=== PATIENT | male | born 1965 | race Caucasian/White ===

== ENCOUNTER 2017-08-17 10:45 | Emergency (ER) | payer BC ==
[2017-08-17] MEDS ORDERED: methylPREDNISolone SOD SUCCI 125 MG/2 ML VIAL IV STA (11:03)
[2017-08-17] MEDS ORDERED: diphenhydrAMINE 50 MG/ML 1 ML VIAL IVP STA (11:03)
[2017-08-17] MEDS ORDERED: FAMOTIDINE 20 MG/2 ML VIAL IV STA (11:03)
[2017-08-17] MEDS ORDERED: IPRATROPIUM-ALBUTEROL 3 ML NEB INHALATION STA (11:03)
[2017-08-17 11:04] VITALS: TEMP 98
--- NOTE | 2017-08-17 11:07 | ED ---
General Adult HPI - General Chief complaint: Shortness of Breath Stated complaint: ASTHMA, SOB Time Seen by Provider: 08/17/17 10:57 Source: patient, RN notes reviewed Mode of arrival: wheelchair Limitations: no limitations - History of Present Illness Initial comments: Patient is a pleasant 52-year-old male presenting to the emergency department with difficulty in breathing. Patient was exposed to perfume earlier today. Patient became short of breath. Patient took a breathing treatment as well as inhaled steroid and 25 mg of Benadryl. Symptoms improved however have started to worsen. Patient does have a history of similar problems previously associated with asthma and ALLERGIES. No fever. - Related Data Home Medications Medication Instructions Recorded Confirmed Albuterol Nebulized [Ventolin 2.5 mg INHALATION RT-QID PRN 08/17/17 08/17/17 Nebulized] Allopurinol [Zyloprim] 300 mg PO DAILY PRN 08/17/17 08/17/17 Ascorbic Acid [Vitamin C] 500 mg PO DAILY 08/17/17 08/17/17 Febuxostat [Uloric] 80 mg PO DAILY 08/17/17 08/17/17 Losartan [Cozaar] 50 mg PO DAILY 08/17/17 08/17/17 Multivitamins, Thera [Multivitamin 1 tab PO DAILY 08/17/17 08/17/17 (formulary)] Omeprazole 20 mg PO DAILY 08/17/17 08/17/17 Simvastatin [Zocor] 20 mg PO HS 08/17/17 08/17/17 Temazepam [Restoril] 15 mg PO HS PRN 08/17/17 08/17/17 Ursodiol 300 mg PO BID 08/17/17 08/17/17 diphenhydrAMINE ELIXIR [Benadryl 25 mg PO ONCE PRN 08/17/17 08/17/17 Elixir] metFORMIN HCL [Glucophage] 1,000 mg PO BID 08/17/17 08/17/17 Previous Rx's Medication Instructions Recorded methylPREDNISolone Dose Pack 24 mg PO DAILY #1 tab 08/17/17 [Medrol Dose Pack] Allergies Allergy/AdvReac Type Severity Reaction Status Date / Time calvo Allergy Severe Dyspnea Verified 08/17/17 10:59 lavender (Lavandula Allergy Severe Dyspnea Verified 08/17/17 10:59 angustifolia) mold Allergy Severe Dyspnea Verified 08/17/17 10:59 perfume Allergy Severe Dyspnea Verified 08/17/17 10:59 ENVIRONMENTAL Allergy Severe Dyspnea Uncoded 08/17/17 10:59 Review of Systems ROS Statement: Those systems with pertinent positive or pertinent negative responses have been documented in the HPI. ROS Other: All systems not noted in ROS Statement are negative. Constitutional: Denies: fever Eyes: Denies: eye pain ENT: Denies: ear pain Respiratory: Reports: dyspnea. Denies: cough Cardiovascular: Denies: chest pain Endocrine: Denies: fatigue Gastrointestinal: Denies: abdominal pain Genitourinary: Denies: dysuria Musculoskeletal: Denies: back pain Skin: Denies: rash Neurological: Denies: weakness Past Medical History Past Medical History: Asthma, Hyperlipidemia History of Any Multi-Drug Resistant Organisms: None Reported Past Surgical History: Hernia Repair, Tonsillectomy Additional Past Surgical History / Comment(s): gastric sleeve, carpal tunnel surgery bilaterally, Rouxen-Y procedure Past Psychological History: No Psychological Hx Reported Smoking Status: Never smoker Past Alcohol Use History: None Reported Past Drug Use History: None Reported General Exam Limitations: no limitations General appearance: alert Head exam: Present: atraumatic Eye exam: Present: normal appearance, PERRL ENT exam: Present: normal oropharynx Neck exam: Present: normal inspection Respiratory exam: Present: respiratory distress, wheezes Cardiovascular Exam: Present: regular rate, normal rhythm Extremities exam: Present: normal inspection. Absent: pedal edema, calf tenderness Neurological exam: Present: alert Psychiatric exam: Present: normal affect, normal mood Skin exam: Present: normal color Course Vital Signs 08/17/17 08/17/17 08/17/17 10:57 11:05 11:23 Temperature 98 F Pulse Rate 77 65 69 Respiratory 26 H 20 Rate Blood Pressure 125/78 118/65 O2 Sat by Pulse 99 100 Oximetry Medical Decision Making - Medical Decision Making Patient reevaluated and significantly improved. No respiratory distress. Patient requests discharge home. Disposition Clinical Impression: Asthma, Allergic reaction Disposition: HOME SELF-CARE Condition: Stable Instructions: Asthma (ED), Allergies (ED) Additional Instructions: Please follow-up with primary care physician in the next couple days for recheck. Return for difficulty in breathing, fevers, swelling of the throat, tongue, or lips, worsening symptoms or other concerns. Continue antihistamines. Prescriptions: methylPREDNISolone Dose Pack [Medrol Dose Pack] 24 mg PO DAILY #1 tab Referrals: Zay Garcia MD [Primary Care Provider] - 1-2 days Time of Disposition: 12:15
[2017-08-17 12:26] VITALS: BP 119/70; PULSE 65; RESP 16
== END 2017-08-17 12:25 | disposition home or self-care (01) ==
LOC: EC 10:45
DX: T78.49XA Other allergy, initial encounter (principal); J45.909 Unspecified asthma, uncomplicated; E78.5 Hyperlipidemia, unspecified; Z79.51 Long term (current) use of inhaled steroids; Z79.84 Long term (current) use of oral hypoglycemic drugs; Z79.899 Other long term (current) drug therapy; Z91.048 Other nonmedicinal substance allergy status
CPT/HCPCS: 94640; 99284; 96374; 96375 ×2; J1200; J2930

== ENCOUNTER → 2017-09-14 | Outpatient (CLI) | payer BC ==
--- NOTE | 2017-09-15 08:02 | XR ---
EXAMINATION TYPE: XR ankle limited LT DATE OF EXAM: 09/14/2017 COMPARISON: NONE HISTORY: FINDINGS: Two views of the ankle demonstrate the ankle mortise to be intact and symmetric. The joint spaces ar e preserved. The osseous structures are intact. Ossific density inferior to the medial malleolus ma y be related to remote trauma. Calcaneal spurs are noted. There is soft tissue edema. IMPRESSION: 1. Bony density inferior to the medial malleolus may be chronic correlate with point tenderness to ex clude acute injury. 2. Diffuse soft tissue edema..
--- NOTE | 2017-09-15 10:59 | US ---
EXAMINATION TYPE: US venous doppler duplex LE LT DATE OF EXAM: 09/14/2017 4:50 PM COMPARISON: NONE CLINICAL HISTORY: M79.89 Swelling left lower extremity. Left ankle swelling. No hx of blood clots or on blood thinners. No surgeries. SIDE PERFORMED: Left TECHNIQUE: The lower extremity deep venous system is examined utilizing real time linear array sonog bill with graded compression, doppler sonography and color-flow sonography. VESSELS IMAGED: External Iliac Vein (EIV) Common Femoral Vein Deep Femoral Vein Greater Saphenous Vein * Femoral Vein Popliteal Vein Small Saphenous Vein * Proximal Calf Veins (* superficial vessels) Left Leg: Negative for DVT IMPRESSION: Grayscale, color doppler, spectral doppler imaging performed of the deep veins of the lo wer extremities. There is normal flow, compressibility, vascular waveforms. No evident deep venous thrombosis at or above the left knee
== END | disposition home or self-care (01) ==
LOC: RADUSWWP 16:16
PROVIDERS: ATTEND Family Medicine
DX: M79.89 Other specified soft tissue disorders (principal)

== ENCOUNTER 2017-11-08 11:52 | Emergency (ER) | payer BC ==
[2017-11-08] MEDS ORDERED: methylPREDNISolone SOD SUCCI 125 MG/2 ML VIAL IV STA (11:56)
[2017-11-08] MEDS ORDERED: SODIUM CHLORIDE 0.9% 1,000 ML IV STA ×2 (11:56)
[2017-11-08] MEDS ORDERED: IPRATROPIUM-ALBUTEROL 3 ML NEB INHALATION STA (11:56)
[2017-11-08] MEDS ORDERED: EPINEPHrine 1 MG/ML 1 ML AMP SQ ONE (12:08)
[2017-11-08] MEDS ORDERED: diphenhydrAMINE 50 MG/ML 1 ML VIAL IVP STA (12:08)
[2017-11-08] MEDS ORDERED: FAMOTIDINE 20 MG/2 ML VIAL IV STA (12:08)
--- NOTE | 2017-11-08 12:09 | ED ---
General Adult HPI - General Chief complaint: Shortness of Breath Stated complaint: ASTHMA Time Seen by Provider: 11/08/17 11:56 Source: patient, RN notes reviewed, old records reviewed Mode of arrival: ambulatory Limitations: no limitations - History of Present Illness Initial comments: This is a 52-year-old male to the ER for evaluation. He goes in today for evaluation regarding ALLERGIC the reactive airway disease secondary perfume exposure. Patient has history of asthma history of issue with similar complaint. Patient states he has severe shortness of breath feeling slightly sore swelling. Patient states that he cannot be needed due to breathing treatment with Benadryl prior to arrival - Related Data Home Medications Medication Instructions Recorded Confirmed Albuterol Nebulized [Ventolin 2.5 mg INHALATION RT-QID PRN 08/17/17 11/08/17 Nebulized] Febuxostat [Uloric] 80 mg PO DAILY 08/17/17 11/08/17 Losartan [Cozaar] 50 mg PO DAILY 08/17/17 11/08/17 Multivitamins, Thera [Multivitamin 1 tab PO DAILY 08/17/17 11/08/17 (formulary)] Omeprazole 20 mg PO DAILY 08/17/17 11/08/17 Simvastatin [Zocor] 20 mg PO HS 08/17/17 11/08/17 Temazepam [Restoril] 15 mg PO HS PRN 08/17/17 11/08/17 Ursodiol 300 mg PO BID 08/17/17 11/08/17 diphenhydrAMINE ELIXIR [Benadryl 25 mg PO Q4H PRN 08/17/17 11/08/17 Elixir] metFORMIN HCL [Glucophage] 1,000 mg PO BID 08/17/17 11/08/17 Allen/D3/Mag11/Zinc/Brass Instrument Repair Technician/Gerry/Bor 1 tab PO DAILY 11/08/17 11/08/17 [Caltrate 600+D Plus Tablet] Allergies Allergy/AdvReac Type Severity Reaction Status Date / Time calvo Allergy Severe Dyspnea Verified 11/08/17 12:45 lavender (Lavandula Allergy Severe Dyspnea Verified 11/08/17 12:45 angustifolia) mold Allergy Severe Dyspnea Verified 11/08/17 12:45 perfume Allergy Severe Dyspnea Verified 11/08/17 12:45 ENVIRONMENTAL Allergy Severe Dyspnea Uncoded 02/22/18 10:59 Review of Systems ROS Statement: Those systems with pertinent positive or pertinent negative responses have been documented in the HPI. ROS Other: All systems not noted in ROS Statement are negative. Past Medical History Past Medical History: Asthma, Hyperlipidemia History of Any Multi-Drug Resistant Organisms: None Reported Past Surgical History: Hernia Repair, Tonsillectomy Additional Past Surgical History / Comment(s): gastric sleeve, carpal tunnel surgery bilaterally, Rouxen-Y procedure Past Psychological History: No Psychological Hx Reported Smoking Status: Never smoker Past Alcohol Use History: None Reported Past Drug Use History: None Reported General Exam Limitations: no limitations General appearance: alert, in no apparent distress, anxious Head exam: Present: atraumatic, normocephalic, normal inspection Eye exam: Present: normal appearance, PERRL, EOMI. Absent: scleral icterus, conjunctival injection, periorbital swelling ENT exam: Present: normal exam, mucous membranes moist Neck exam: Present: normal inspection. Absent: tenderness, meningismus, lymphadenopathy Respiratory exam: Present: respiratory distress, wheezes, accessory muscle use, decreased breath sounds, prolonged expiratory. Absent: normal lung sounds bilaterally, rales, rhonchi, stridor Cardiovascular Exam: Present: regular rate, normal rhythm, normal heart sounds. Absent: systolic murmur, diastolic murmur, rubs, gallop, clicks GI/Abdominal exam: Present: soft, normal bowel sounds. Absent: distended, tenderness, guarding, rebound, rigid Extremities exam: Present: normal inspection, full ROM, normal capillary refill. Absent: tenderness, pedal edema, joint swelling, calf tenderness Back exam: Present: normal inspection Neurological exam: Present: alert, oriented X3, CN II-XII intact Psychiatric exam: Present: normal affect, normal mood Skin exam: Present: warm, dry, intact, normal color. Absent: rash Course Vital Signs 11/08/17 11/08/17 11/08/17 11:59 12:02 12:03 Temperature 98.0 F Pulse Rate 97 83 Respiratory 18 30 H Rate Blood Pressure 122/68 O2 Sat by Pulse 98 Oximetry 11/08/17 11/08/17 12:20 12:38 Temperature Pulse Rate 86 90 Respiratory 24 22 Rate Blood Pressure 121/62 O2 Sat by Pulse 100 100 Oximetry - Reevaluation(s) Reevaluation #1: 11/08/17 13:27 Patient states that this when he has significant improvement in symptoms. No shortness of breath, no difficulty breathing no feelings of throat closing or stridor EKG Findings - EKG Comments: EKG Findings:: EKG shows normal sinus rhythm rate of 80, MN 134, QRS 90, QTc 479 Medical Decision Making - Medical Decision Making 62 male with ALLERGIC induced L asthma attack. At this point patient does feel normal, patient can be discharged home - Lab Data Result diagrams: 11/08/17 12:05 11/08/17 12:05 Lab Results 11/08/17 11/08/17 11/08/17 Range/Units 12:05 12:05 12:05 WBC 11.2 H (3.8-10.6) k/uL RBC 4.77 (4.30-5.90) m/uL Hgb 13.9 (13.0-17.5) gm/dL Hct 42.4 (39.0-53.0) % MCV 88.9 (80.0-100.0) fL MCH 29.2 (25.0-35.0) pg MCHC 32.9 (31.0-37.0) g/dL RDW 15.0 (11.5-15.5) % Plt Count 204 (150-450) k/uL Neutrophils % 65 % Lymphocytes % 27 % Monocytes % 5 % Eosinophils % 2 % Basophils % 1 % Neutrophils # 7.3 (1.3-7.7) k/uL Lymphocytes # 3.0 (1.0-4.8) k/uL Monocytes # 0.5 (0-1.0) k/uL Eosinophils # 0.2 (0-0.7) k/uL Basophils # 0.1 (0-0.2) k/uL Sodium 143 (137-145) mmol/L Potassium 4.0 (3.5-5.1) mmol/L Chloride 107 (98-107) mmol/L Carbon Dioxide 22 (22-30) mmol/L Anion Gap 14 mmol/L BUN 13 (9-20) mg/dL Creatinine 0.67 (0.66-1.25) mg/dL Est GFR (CKD-EPI)AfAm >90 (>60 ml/min/1.73 sqM) Est GFR (CKD-EPI)NonAf >90 (>60 ml/min/1.73 sqM) Glucose 133 H (74-99) mg/dL Calcium 9.8 (8.4-10.2) mg/dL Magnesium 1.6 (1.6-2.3) mg/dL Total Bilirubin 0.6 (0.2-1.3) mg/dL AST 18 (17-59) U/L ALT 29 (21-72) U/L Alkaline Phosphatase 100 (38-126) U/L Total Creatine Kinase 49 L (55-170) U/L CK-MB (CK-2) 0.8 (0.0-2.4) ng/mL CK-MB (CK-2) Rel Index 1.6 Troponin I <0.012 (0.000-0.034) ng/mL Total Protein 6.1 L (6.3-8.2) g/dL Albumin 3.9 (3.5-5.0) g/dL - Radiology Data Radiology results: report reviewed (Chest x-rays negative), image reviewed Disposition Clinical Impression: Asthma with exacerbation, Bronchospasm, acute Disposition: HOME SELF-CARE Condition: Good Instructions: Bronchospasm (ED), Allergies (ED), Asthma (ED) Is patient prescribed a controlled substance at d/c from ED?: No Referrals: Zay Garcia MD [Primary Care Provider] - 1-2 days
[2017-11-08 12:15] LABS: Basophils # (A) 0.1 k/uL (0-0.2); Basophils % (A) 1 %; Eosinophils # (A) 0.2 k/uL (0-0.7); Eosinophils % (A) 2 %; HCT 42.4 % (39.0-53.0); HGB 13.9 gm/dL (13.0-17.5); Lymphocytes % (A) 27 %; MCH 29.2 pg (25.0-35.0); MCHC 32.9 g/dL (31.0-37.0); MCV 88.9 fL (80.0-100.0); Mean Platelet Volume 7.8; Monocytes # (A) 0.5 k/uL (0-1.0); Monocytes % (A) 5 %; Neutrophils # (A) 7.3 k/uL (1.3-7.7); Neutrophils % (A) 65 %; Platelet Count 204 k/uL (150-450); RBC 4.77 m/uL (4.30-5.90); WBC 11.2 k/uL (3.8-10.6)
[2017-11-08 12:27] LABS: ALT 29 U/L (21-72); AST 18 U/L (17-59); Albumin 3.9 g/dL (3.5-5.0); Alkaline Phosphatase 100 U/L (38-126); Anion Gap 14 mmol/L; Blood Urea Nitrogen 13 mg/dL (9-20); Calcium 9.8 mg/dL (8.4-10.2); Carbon Dioxide 22 mmol/L (22-30); Chloride 107 mmol/L (98-107); Glucose 133 mg/dL (74-99); Magnesium 1.6 mg/dL (1.6-2.3); Sodium 143 mmol/L (137-145); Total Bilirubin 0.6 mg/dL (0.2-1.3); Total Protein 6.1 g/dL (6.3-8.2)
--- NOTE | 2017-11-08 12:38 | XR ---
EXAMINATION TYPE: XR chest 1V portable DATE OF EXAM: 11/08/2017 Comparison: None Clinical History: 52-year-old male sob Findings: Heart normal size. Aorta and pulmonary vasculature are within normal limits. Hazy peripheral lung den sities related to overlying soft tissue. No consolidation or pleural effusion. Impression: No acute cardiopulmonary process.
[2017-11-08 12:39] LABS: Creatine Kinase 49 U/L (55-170)
[2017-11-08 12:51] LABS: Creatine Kinase MB 0.8 ng/mL (0.0-2.4); Troponin I <0.012 ng/mL (0.000-0.034)
[2017-11-08 13:46] VITALS: BP 137/61; PULSE 85; RESP 18; TEMP 97.6
== END 2017-11-08 14:10 | disposition home or self-care (01) ==
LOC: EC 11:52
DX: J45.901 Unspecified asthma with (acute) exacerbation (principal); E78.5 Hyperlipidemia, unspecified; Z79.84 Long term (current) use of oral hypoglycemic drugs; Z79.899 Other long term (current) drug therapy; Z91.048 Other nonmedicinal substance allergy status
CPT/HCPCS: 36415; 94640; 93005; 80053; 82550; 82553; 83735; 84484; 85025; 71045; 99285; 96374; 96375 ×2; 96361; 96372; J0171; J1200; J2930

== ENCOUNTER → 2020-05-29 | Outpatient (CLI) | payer BC | END | disposition home or self-care (01) | LOC: LABWHC1 16:56 | PROVIDERS: ATTEND Ophthalmology | DX: U07.1 COVID-19 (principal) | CPT/HCPCS: U0003; C9803 ==

== ENCOUNTER → 2022-09-13 | Outpatient (CLI) | payer BC ==
[2022-09-13 10:48] LABS: Basophils # (A) 0.06 X 10*3/uL (0.00-0.10); Basophils % (A) 0.9 %; HCT 44.3 % (39.6-50.0); HGB 14.1 g/dL (13.0-17.0); Immature Grans, Automated 0.3 %; Lymphocytes # (A) 2.25 X 10*3/uL (0.90-5.00); Lymphocytes % (A) 33.4 %; MCH 28.4 pg (27.0-32.0); MCHC 31.8 g/dL (32.0-37.0); MCV 89.1 fL (80.0-97.0); Mean Platelet Volume 11.5 fL (9.5-12.2); Monocytes # (A) 0.61 X 10*3/uL (0.20-1.00); Monocytes % (A) 9.1 %; NRBC Per 100 WBC 0 /100 WBCS (0.0-0.0); Neutrophils # (A) 3.59 X 10*3/uL (1.80-7.70); Neutrophils % (A) 53.3 %; Platelet Count 213 X 10*3/uL (140-440); RBC 4.97 X 10*6/uL (4.40-5.60); RDW 13.8 % (11.5-14.5); WBC 6.73 X 10*3/uL (4.50-10.00)
[2022-09-13 11:41] LABS: African American GFR (CKD) 109.1 (60.0-200.0); Albumin 4.1 g/dL (3.8-4.9); Albumin/Globulin Ratio 1.9 (1.60-3.17); Anion Gap 8.8 mmol/L (10.00-18.00); BUN/Creat Ratio 14.54 Ratio (12.00-20.00); Blood Urea Nitrogen 13.2 mg/dL (9.0-27.0); Calcium 9.7 mg/dL (8.7-10.3); Carbon Dioxide 28.8 mmol/L (20.0-27.5); Globulin 2.2 g/dL (1.6-3.3); Non-African American GFR(CKD) 94.1 (60.0-200.0); Potassium 4.8 mmol/L (3.5-5.5); Total Bilirubin 0.4 mg/dL (0.30-1.20); Total Protein 6.2 g/dL (6.2-8.2)
== END | disposition home or self-care (01) ==
LOC: LABWHC1 07:36
PROVIDERS: ATTEND Surgery
DX: K81.1 Chronic cholecystitis (principal)
CPT/HCPCS: 36415; 80053; 85025

== ENCOUNTER → 2022-09-16 | Day surgery (SDC) | payer BC ==
[2022-09-14 10:47] VITALS: BMI 34.4
[~2022-09-16] MED LIST: ACETAMINOPHEN TAB 325 MG TAB PO SCH; ACETAMINOPHEN TAB 500 MG TAB PO PRN; BUPIVACAIN-EPI 0.25%-1:200,000 30 ML VIAL SQ ONE; DEXAMETHASONE SOD PHOSPHATE 4 MG/ML 1 ML VIAL IV ONE; GLYCOPYRROLATE 0.2 MG/ML 2 ML VIAL ONE; HEPARIN SODIUM,PORCINE/PF 5,000 UNIT/0.5 ML SYRINGE SQ PRN; HYDROmorphone (PF) 1 MG/ML ONE; HYDROmorphone 0.5 MG/0.5 ML SYRINGE IVP ONE; HYDROmorphone 0.5 MG/0.5 ML SYRINGE IVP PRN; IBUPROFEN 600 MG TAB PO SCH; LACTATED RINGERS 1,000 ML IV ONE; LACTATED RINGERS 1,000 ML IV SCH; LIDOCAINE 1% (10MG/ML) FOR IV START INTRADERMA PRN; LIDOCAINE 2% INJ 20 MG/ML (2 ML VIAL) ONE; LIDOCAINE 4% LTA KIT (4 ML) TOPICAL ONE; MIDAZOLAM 2 MG/2 ML VIAL IV PRN; MIDAZOLAM 2 MG/2 ML VIAL ONE; NEOSTIGMINE 1 MG/ML 10 ML VIAL ONE; ONDANSETRON 4 MG/2 ML VIAL IVP ONE; PHENYLEPHRINE-0.9% NACL SYG 1,000 MCG/10 ML SYRINGE ONE; PROPOFOL 10 MG/ML 20 ML VIAL IV ONE; SUCCINYLCHOLINE CHLORIDE 200 MG/10 ML VIAL IV ONE; fentaNYL (PF) 50 MCG/ML 2 ML AMP ONE
[2022-09-16 07:22] LABS: Glucose,Whole Blood 149 mg/dL (70-110)
--- NOTE | 2022-09-16 07:30 | P.GSHP ---
History of Present Illness H&P Date: 09/16/22 Chief Complaint: Chronic cholecystitis 57-year-old male seen in the office in June. Having intermittent complaints of right upper quadrant pain. Ultrasound performed showing gallstones with gallbladder wall thickening. Recent liver enzymes normal. Here today for elect tere laparoscopic cholecystectomy. Past Medical History Past Medical History: Asthma, Diabetes Mellitus, Hyperlipidemia Additional Past Medical History / Comment(s): Hyperlipidemia resolved 6 yrs ago. Hx Gout. History of Any Multi-Drug Resistant Organisms: None Reported Past Surgical History: Bariatric Surgery, Hernia Repair, Orthopedic Surgery, Tonsillectomy Additional Past Surgical History / Comment(s): Gastric sleeve, bilateral carpal tunnel surgery, Becky en Y Procedure. Past Anesthesia/Blood Transfusion Reactions: No Reported Reaction Past Psychological History: No Psychological Hx Reported Smoking Status: Never smoker Past Alcohol Use History: None Reported Past Drug Use History: None Reported - Past Family History Mother Family Medical History: No Reported History Medications and Allergies Home Medications Medication Instructions Recorded Confirmed Type Albuterol Nebulized [Ventolin 2.5 mg INHALATION RT-QID PRN 08/17/17 09/16/22 History Nebulized] Multivitamins, Thera [Multivitamin 1 tab PO DAILY 08/17/17 09/14/22 History (formulary)] diphenhydrAMINE ELIXIR [Benadryl 25 mg PO Q4H PRN 08/17/17 09/16/22 History Elixir] metFORMIN HCL [Glucophage] 1,000 mg PO BID 08/17/17 09/14/22 History Allen/D3/Mag11/Zinc/Cost Accountant/Gerry/Bor 1 tab PO DAILY 11/08/17 09/14/22 History [Caltrate 600+D Plus Tablet] Albuterol Inhaler (Unknown Dose) 1 - 2 puff INHALATION DIRECTED 09/14/22 09/16/22 History PRN Cetirizine HCl [Zyrtec] 10 mg PO HS 09/14/22 09/14/22 History Ergocalciferol [Vitamin D2 (1250 1,250 mcg PO MOWE 09/14/22 09/16/22 History Mcg = 18752 Iu)] Famotidine [Pepcid] 40 mg PO BID PRN 09/14/22 09/16/22 History Loratadine 10 mg PO QAM 09/14/22 09/16/22 History predniSONE 50 mg PO DAILY PRN 09/14/22 09/16/22 History Glimepiride [Amaryl] 2 mg PO AC-BRKFST 09/16/22 09/16/22 History Allergies Allergy/AdvReac Type Severity Reaction Status Date / Time calvo Allergy Severe Dyspnea Verified 09/16/22 06:56 lavender (Lavandula Allergy Severe Dyspnea Verified 09/16/22 06:56 angustifolia) mold Allergy Severe Dyspnea Verified 09/16/22 06:56 perfume Allergy Severe Dyspnea Verified 09/16/22 06:56 ENVIRONMENTAL Allergy Severe Dyspnea Uncoded 09/16/22 06:56 Surgical - Exam Physical exam: General: Well-developed, well-nourished HEENT: Normocephalic, sclerae nonicteric Abdomen: Nontender, nondistended Extremities: No edema Neuro: Alert and oriented Results - Labs Abnormal Lab Results - Last 24 Hours (Table) 09/16/22 Range/Units 07:17 POC Glucose (mg/dL) 149 H (70-110) mg/dL Assessment and Plan (1) Chronic cholecystitis Narrative/Plan: 57-year-old male with chronic cholecystitis. We'll proceed with laparoscopic, possible open cholecystectomy at this time. Risks of bleeding, infection, bile leak, bile duct injury, retained common bile duct stone, trocar injury, conversion to an open procedure, hernia, anesthesia related complications were reviewed. The patient understands and wishes to proceed. Current Visit: Yes Status: Acute Code(s): K81.1 - CHRONIC CHOLECYSTITIS SNOMED Code(s): 38881776
[2022-09-16 09:16] VITALS: TEMP 97.5
--- NOTE | 2022-09-16 09:21 | P.OP ---
Date of Procedure: 09/16/22 Procedure(s) Performed: PREOPERATIVE DIAGNOSIS: Chronic cholecystitis POSTOPERATIVE DIAGNOSIS: Same, intra-abdominal adhesions PROCEDURE: Laparoscopic cholecystectomy, lysis of adhesions SURGEON: Rodrick EBL: Minimal see anesthesia record ANESTHESIA: Gen. COMPLICATIONS: None OPERATIVE PROCEDURE: The patient was brought and placed on the operating room table in the supine position. The patient was placed under general anesthesia at that time. The abdomen was prepped and draped in the usual sterile fashion. A small horizontal supraumbilical incision was made. The fascia was grasped with the Rudy forceps. The fascia was retracted anteriorly. The Veress needle was advanced into the peritoneal cavity. The saline drop test was normal. Insufflation took place up to 15 mmHg. A 5 mm optical trocar was advanced and the peritoneal cavity. The patient had adhesions between the transverse colon omentum and the abdominal wall in the epigastric region. An additional 5 mm trocar was used in the left upper quadrant and through that a LigaSure was utilized to take down the adhesions. The patient's falciform was densely adherent to these adhesions and was divided using LigaSure. The left lobe of the patient's liver was quite large in this case. Visualization of the gallbladder was somewhat limited. Through the lateral left upper quadrant trocar site I was able to elevate the left lower liver using a blunt pusher. 2 additional 5 mm trochars were placed in the right upper quadrant under direct visualization. A 12 mm trocar was advanced into the epigastric incision site. The gallbladder was retracted superiorly and laterally. The peritoneum overlying the infundibulum was bluntly dissected. The patient's cystic duct was visualized. The junction between the cystic duct common and hepatic duct was identified. The critical view of safety was achieved after blunt dissection. The cystic duct was then divided after placement of a 2-0 Ethibond stitch on the cystic duct. An additional 12 mm clip was placed on the patient's side and also on the specimen side. The cystic artery was identified and clipped as well. A small vessel was seen along the gallbladder fossa and clipped as well. The gallbladder was then removed from the liver bed using electrocautery. The removal of the gallbladder from the liver bed was somewhat challenging and it was not until after we were towards the fundus of the gallbladder that it became evident that the falciform ligament entered the liver lateral into the right side of the gallbladder fossa. The gallbladder fossa was on the left lobe of the liver that was again quite enlarged. The gallbladder was then removed from the epigastric trocar site with an Endo Catch bag. The gallbladder fossa was irrigated with saline. There was no evidence of any bleeding or biliary drainage seen. The fascia at the 12 millimeter site was closed using a Pauly Brandon 0 Vicryl stitch. The trochars were then removed. The skin at all 5 sites was closed using a 4-0 Monocryl stitch. Skin glue was utilized on the incision sites. At the end of this procedure the sponge and needle counts were correct. DISPOSITION: Stable to the recovery room
[2022-09-16 10:14] LABS: Glucose,Whole Blood 208 mg/dL (70-110)
[2022-09-16 10:16] VITALS: RESP 16
[2022-09-16 10:30] VITALS: BP 161/89; PULSE 63
== END ==
LOC: OR 06:37
PROVIDERS: ATTEND Surgery
DX: K80.10 Calculus of gallbladder with chronic cholecystitis without obstruction (principal); K66.0 Peritoneal adhesions (postprocedural) (postinfection); J45.909 Unspecified asthma, uncomplicated; E11.9 Type 2 diabetes mellitus without complications; E78.5 Hyperlipidemia, unspecified; Z98.84 Bariatric surgery status; Z90.89 Acquired absence of other organs; Z98.890 Other specified postprocedural states; Z79.51 Long term (current) use of inhaled steroids; Z79.84 Long term (current) use of oral hypoglycemic drugs; Z79.52 Long term (current) use of systemic steroids; Z79.811 Long term (current) use of aromatase inhibitors; Z79.1 Long term (current) use of non-steroidal anti-inflammatories (NSAID); Z79.2 Long term (current) use of antibiotics; Z91.048 Other nonmedicinal substance allergy status; Z79.899 Other long term (current) drug therapy
CPT/HCPCS: 47562; 88304; J2250; J0330; J1100; J2710; J0690; J2405; J3010; J1170 ×2; J2370; J2704; J1790; J1644; J2001